=== PATIENT | male | born 1995 | race Caucasian/White ===

== ENCOUNTER 2024-06-08 13:03 | Emergency (ER) | payer OTHER, SELFPAY ==
[2024-06-08 13:04] VITALS: BP 158/95; PULSE 104; RESP 16; TEMP 36.3; O2SAT 97; BMI 41.7
--- NOTE | 2024-06-08 14:31 | EDS_ITS ---
HPI History of Present Illness Chief Complaint: Lower Extremity Injury Informant: patient Narrative Narrative: Patient is 28-year-old male presenting with worsening right calf pain. Has a history of DVT as well as superficial thrombophlebitis. Is concerned he has a blood clot again. Denies any injury or new activities. Denies any recent immobilization or travel. Denies any recent surgeries. Denies any chest pain or shortness of breath. Is already taking a daily aspirin. States he has been feeling sore in his right calf but it was worse today which is what prompted him to come to the ER instead of waiting till tomorrow. PFSH PFSH Home Medications ?Medication ?Instructions ?Recorded ?Last Taken ?Type apixaban 5 mg (74 tabs) tablets in See Rx Instructions .Route 06/08/24 Unknown Rx a dose pack (Eliquis DVT-PE Treat .COMPLEX #74 tabs 30D Start) aspirin 81 mg chewable tablet 1 tab PO DAILY 06/08/24 Unknown History (Aspirin Childrens) Allergy/AdvReac Type Severity Reaction Status Date / Time No Known Allergies Allergy Verified 06/08/24 13:05 Social History Smoking Status: Never smoker ROS ROS ED Constitutional Constitutional ED: Denies chills or fever(s) Cardiovascular Cardiovascular: Denies chest pain or palpitations Respiratory/Chest Respiratory/Chest: Denies cough or dyspnea Musculoskeletal Musculoskeletal: Reports other Details: Right calf pain Neurologic Neurologic: Denies paresthesias Hematologic/Lymphatic Hematologic/Lymphatic: Denies easy bleeding or easy bruising EXAM Physical Exam Const Vital Signs: 06/08/24 13:04 Temperature 97.4 F L Temperature Source Oral Pulse Rate 104 H Respiratory Rate 16 Blood Pressure 158/95 H Blood Pressure Mean 116 Pulse Ox 97 Positive well nourished and well developed General Appearance ED: well developed and NAD HEENT Reports moist mucous membranes Neck full ROM Chest Wall inspection of chest normal and palpation of chest normal Resp normal respiratory effort and clear to auscultation bilaterally Cardio regular rate and regular rhythm Cardio Narrative: 2+ PT pulses Extremity normal to inspection and full ROM Extremity Narrative: No palpable cords. Compartments are soft. Mild tenderness palpation over the calf. No appreciable edema. General Extremety ED: Negative for weight-bearing difficulty General Extremity: Negative for weight-bearing difficulty Neuro oriented x3 and moves all extremities Sensorium / Orientation: alert Motor Exam: Negative for general weakness Psych mental status grossly normal Skin no wounds Rashes: no rashes Trauma: Negative for abrasion MDM MDM MDM Narrative Medical decision making narrative: Patient is evaluated for right calf soreness. No significant issue of DVT. Upon arrival patient is mildly tachycardic however on my evaluation he is no longer tachycardic. He is well-appearing. He denies any shortness of breath, chest pain. He states [place] on room air. Bedside ultrasound from by myself does not show femoral vein DVT however I do questionably see superficial clot of the right calf. Do not see any obvious clot in the popliteal area. Patient has a personal history of DVT and family history of clots. Will treat empirically with dose of weight-based Lovenox in the ER. Will place an order for formal venous duplex ultrasound tomorrow. Noemi ent is empirically given a prescription for Eliquis (paper prescription) as well as a coupon pack. Counseled that if he does have DVT he needs to follow-up with vascular surgery and start the Eliquis. He is previously been on Coumadin without any difficulties. Denies any bleeding issues. Counseled that if he does not have DVT he can tear of the prescription. Discussed that if he has a simple DVT he does not need to return to the emergency tomorrow if it is positive since he already has the prescription. However if he has any further concerns or progression of symptoms he should not hesitate to return. Patient verbalized agreement or stands plan. Discharged home in stable condition. Discharge Plan Triage Chief Complaint: Lower Extremity Injury ED Provider: Daiana Bergeron Dx/Rx/DC Orders Clinical Impression: Pain of right calf, History of deep vein thrombosis Instructions: ED Deep Vein Thrombosis (DVT) Prescriptions: New Eliquis DVT-PE Treat 30D Start 5 mg (74 tabs) tablets,dose pack See Rx Instructions .Route .COMPLEX Qty: 74 0RF Rx Instructions: orally per package directions No Action aspirin [Aspirin Childrens] 81 mg tablet,chewable 1 tab PO DAILY Other Ambulatory Orders: Venous Duplex US, Unilateral (Stat) Facility: [facility] - Location: [facility] Ordered By: Dr. Daiana Bergeron Primary Care Provider: Care Physician,No Primary Referrals: Rogelio Conti MD [Med Staff - Active Staff] - 1 Week (if DVT + ) NOT,DEFINED [Non-Staff] - Activity Restrictions/Additional Instructions: You been given a shot of Lovenox which will cover you for the next 24 hours in case you do have a blood clot in your leg. You have been given a prescription for Eliquis in case you do have a positive DVT study on your ultrasound. Please go tomorrow for ultrasound to further evaluate. If you have a simple DVT you do not need to come back to the ER as you have already been given a prescription for treatment. If you do have a DVT I would like you to follow-up with her vascular surgeon (Dr. Conti). Otherwise please follow-up with your primary care doctor. If you do not have a DVT please tear up the prescription for the blood thinner (Eliquis). Print Language: Cook Islander Disposition Disposition: Home, Self Care Discharge Date/Time: 06/08/24 14:57
[2024-06-08] MEDS: Enoxaparin 150 MG/ML Syringe 130 MG SC (14:53)
== END 2024-06-08 14:57 | disposition home or self-care (01) ==
PROVIDERS: Emergency Provider Emergency Medicine; Visit Provider Emergency Medicine
DX: M79.661 Pain in right lower leg (principal); Z86.718 Personal history of other venous thrombosis and embolism; Z79.82 Long term (current) use of aspirin
CPT/HCPCS: 99282

== ENCOUNTER → 2024-06-09 | Outpatient (CLI) | payer SELFPAY ==
--- NOTE | 2024-06-09 12:54 | VDLE_ITS ---
Reason For Study: Right leg swelling RIGHT LEFT GSV is normal. CFV is compressible, spontaneous, phasic, CFV is compressible, spontaneous, phasic, competent, and demonstrates normal competent and demonstrates normal augmentation. augmentation. FV is compressible, spontaneous, phasic, competent and demonstrates normal augmentation. Acute deep vein thrombosis is noted in the POP V, T/P trunk PTV and SoleusV. It is dilated and NONCOMPRESSIBLE. RT PerV is compressible. Procedure This is a venous duplex using B-mode, color flow and spectral Doppler. Exam performed in department. A preliminary report was called and/or faxed to Chelsy JONES. Dr. Conti's office. Patient given perscription for SPIL GAMES, instructued to fill that and follow up with Dr. Conti's office [place]. VL/Venous Duplex US, Unilateral Interpretation Summary Acute deep vein thrombosis is noted in the right popliteal vein, tibioperoneal trunk vein, posterior tibial vein, soleus vein. Ordering Physician: Daiana Bergeron Performed By: Shaneka Cleveland RVT
== END | disposition home or self-care (01) ==
PROVIDERS: Referring Provider Emergency Medicine; Visit Provider Emergency Medicine
DX: M79.89 Other specified soft tissue disorders (principal)
CPT/HCPCS: 93971

== ENCOUNTER → 2024-12-08 | Outpatient (CLI) | payer SELFPAY | END | disposition home or self-care (01) | LOC: CVS 15:10 | PROVIDERS: Referring Provider Physician Assistant; Visit Provider Physician Assistant | DX: I82.401 Acute embolism and thrombosis of unspecified deep veins of right lower extremity (principal); R60.0 Localized edema | CPT/HCPCS: 93970 ==